=== PATIENT | male | born 1965 | race Caucasian/White ===

== ENCOUNTER → 2020-01-07 | Outpatient (CLI) | payer OTHER, SELFPAY | END | disposition home or self-care (01) | LOC: LABSPEC 01-11 07:31 | PROVIDERS: PCP Internal Medicine; Referring Provider Nurse Practitioner; Visit Provider Nurse Practitioner | DX: Z20.828 Contact with and (suspected) exposure to other viral communicable diseases (principal) | CPT/HCPCS: 87635; G2023; U0003 ==

== ENCOUNTER 2022-08-14 12:58 | Observation (INO) | payer OTHER, SELFPAY ==
[2022-08-14 12:59] VITALS: BP 155/101; PULSE 102; RESP 18; TEMP 35.9; O2SAT 98; BMI 34.5
[2022-08-14 13:31] LABS: Bedside Glucose 144 mg/dL (74-106)
--- NOTE | 2022-08-14 14:35 | EKG12_ITS ---
Test Reason : CONFUSION Blood Pressure : / mmHG Vent. Rate : 083 BPM Atrial Rate : 083 BPM P-R Int : 162 ms QRS Dur : 092 ms QT Int : 370 ms P-R-T Axes : 033 047 134 degrees QTc Int : 434 ms Normal sinus rhythm Nonspecific T wave abnormality Abnormal ECG Confirmed by HENRY MURRAY, MELISSA ([id number]), health editor MARICEL GAMBOA ([id number]) on 08/16/2022 9:40:00 AM Referred By: Confirmed By:MELISSA FIGUEROA MD
--- NOTE | 2022-08-14 14:35 | CT_ITS ---
STUDY: CT BRAIN WITHOUT CONTRAST REASON FOR EXAM: Male, 57 years old. Confusion RADIATION DOSAGE (If Supplied By Facility): CTDIvol = ( 44.99 ) mGy, DLP = ( 863.60 ) mGycm TECHNIQUE: Transaxial CT imaging of the brain was performed without administration of intravenous contrast material. Individualized dose optimization techniques were used for this CT. COMPARISON: No relevant priors. FINDINGS: Normal soft tissue structures. Normal calvarium. Normal size ventricles and extra-axial spaces for the patient''s age. Normal white matter tracts of the cerebral hemispheres. Normal basal ganglia and thalami. Normal brainstem. Normal cerebellum. There is no intracranial hemorrhage. There are no findings of an acute ischemic infarction. Normal visualized paranasal sinuses. CT/Brain/Head without Contrast IMPRESSION: Normal unenhanced CT scan of the brain. Electronically Signed: González Lang MD at 15:29 EST ,
[2022-08-14 14:56] LABS: Absolute Lymphocyte Count 1.95 X10^3/uL (0.83-4.51); Absolute Neutrophil Count 4.2 X10^3/uL (2.0-7.7); Basophil# 0.07 X10^3/uL; Eosinophil# 0.09 X10^3/uL; Eosinophils% 1.3 % (0-5); Hematocrit 45.1 % (40-54); Hemoglobin 15.5 g/dL (13.0-16.5); Lymphocyte # 1.95 X10^3/ul (0.83-4.51); Mean Corp Hgb Conc 34.4 g/dL (32-36); Mean Corpuscular Hgb 27.4 pg (27.0-32.0); Mean Corpuscular Volume 79.8 fL (80-94); Mean Platelet Vol. 10.3 fl (6.2-12.0); Monocyte# 0.43 X10^3/uL; Monocyte% 6.4 % (0-10); NRBC Flagged by Analyzer 0 % (0-5); Neutrophil # 4.16 X10^3/uL (2.7-7.7); Neutrophil % 61.9 % (47-70); Platelet Count 247 K/mm3 (150-450); RBC Distribution Width CV 13.2 % (11.6-14.6); RBC Distribution Width SD 37.2 fl (35.1-43.9); Red Blood Count 5.65 M/mm3 (4.6-6.2); White Blood Count 6.7 K/mm3 (4.4-11.0)
[2022-08-14 15:14] LABS: ALB/GLOB Ratio 1.2 RATIO (0.9-2.4); AST(SGOT) 45 U/L (15-37); Alanine Aminotransfer ALT/SGPT 60 U/L (16-61); Albumin, Serum 3.7 g/dL (3.2-5.0); Alkaline Phosphatase 60 U/L (45-117); Anion Gap 8 (5-15); BUN 14 mg/dL (7-18); Calcium,Total 8.8 mg/dL (8.5-10.1); Chloride 105 mmol/L (98-107); Creatinine, Serum 0.88 mg/dL (0.70-1.30); EST Glomerular Filtration Rate 96 mL/min (>60); Est Glom Filt Rate - Afr Amer 116 mL/min (>60); Estimated Creatinine Clearance 102.88 ml/min; Globulin 3.1 g/dL (2.2-4.2); Glucose 115 mg/dL (74-106); Potassium 3.5 mmol/L (3.5-5.1); Protein, Total 6.8 g/dL (6.4-8.2); Sodium Level 139 mmol/L (136-145); Troponin-I HS 9 pg/mL (3.0-78.0)
[2022-08-14 15:22] VITALS: BP 155/90; PULSE 93; RESP 13; O2SAT 100
[2022-08-14 15:25] LABS: Bacteria 0 SEEN /hpf (None Seen); Mucous, Urine 0 SEEN /hpf (<or=2+); Red Blood Cells-Urine 0 SEEN /hpf (0-5); Squamous Epithelial Cells - UA 0 SEEN /hpf (0-5); White Blood Cells 0 SEEN /hpf (0-5)
[2022-08-14 15:43] LABS: Color, Urine Yellow (Yellow); Glucose, Dipstick 50 mg/dl (Normal); Ketone-Dipstick Negative (Negative); Leukocyte Esterase-Dipstick Negative /ul (Negative); Nitrite-Dipstick Negative (Negative); Occult Blood-Urine Negative /ul (Negative); Protein-Dipstick 15 mg/dl (Negative); Urine Bilirubin Dipstick Negative (Negative); Urine Clarity Clear (Clear); Urine Urobilinogen Normal (Normal)
--- NOTE | 2022-08-14 16:04 | EDS_ITS ---
HPI History of Present Illness Chief Complaint: Confusion Informant: patient Onset/Context/Timing Onset: Today Context: Sudden Onset Timing: Lasts (2 hours) Quality: Confused, disoriented Location: Generalized Worsened by: Nothing Relieved by: Nothing Narrative Narrative: Presents with confusion episode that began today. Patient states that he took his normal injection of Mounjaro today at approximately 7:15. Patient states he is up to 10 mg of the Mounjaro once a week. Patient states that last week he also took an injection of 10 mg and had no side effects from that. Patient states that around 9:15 he noted he was becoming confused. Patient states that for approximately 2 hours he was confused and was having difficulty doing his normal activities. Patient states later in the day he realized that he was on his computer searching for some of the symptoms he was having. Patient does not remember much of that. Currently, patient states he feels back to normal. Patient did not check his blood sugar while he was confused. Patient denies any recent fevers or chills. Patient denies any chest pain or shortness of breath. Patient states nothing makes it better nothing makes it worse. PFSH PFSH Medical History Diabetes Hypercholesterolemia Hypertension Obstructive sleep apnea Medical History no medical history Allergy/AdvReac Type Severity Reaction Status Date / Time No Known Allergies Allergy Verified 08/14/22 13:01 Family History (Updated 08/14/22 @ 16:[address] Fernando Macias DO) Father Dementia Surgical History Hx of cholecystectomy Social History Smoking Status: Unknown if ever smoked ROS ROS ED Constitutional Constitutional ED: Denies chills or fever(s) Eyes Eyes: Denies blurry vision or change in vision ENT ENT ED: Denies rhinorrhea or sore throat Cardiovascular Cardiovascular: Denies chest pain or palpitations Respiratory/Chest Respiratory/Chest: Denies cough or dyspnea Gastrointestinal Gastrointestinal: Denies nausea or vomiting Genitourinary Genitourinary ED: Denies dysuria or hematuria Musculoskeletal Musculoskeletal: Denies back pain or neck pain Integumentary Denies abscess or rash Neurologic Neurologic: Denies headache(s) or weakness Allergic/Immunologic Allergic/Immunologic ED: Denies mouth swelling or urticaria EXAM Physical Exam Const Vital Signs: 08/14/22 12:59 08/14/22 15:22 Temperature 96.7 F L Temperature Source Temporal Pulse Rate 102 H 93 Respiratory Rate 18 13 Blood Pressure 155/101 H 155/90 H Blood Pressure Mean 119 111 Pulse Ox 98 100 Oxygen Delivery Method Room Air Room Air Positive well nourished and well developed General Appearance ED: well developed and NAD HEENT Reports moist mucous membranes Neck supple and no JVD Resp normal respiratory effort and clear to auscultation bilaterally Cardio regular rate, regular rhythm and no murmurs GI normal to inspection, nondistended, normoactive bowel sounds and non-tender Palpation: soft Extremity normal to inspection General Extremety ED: Negative for edema or tenderness General Extremity: Negative for edema Neuro oriented x3, CN's II-XII intact bilaterally and no sensory deficits noted Sensorium / Orientation: alert Motor Exam: strength 5/5 throughout Psych mental status grossly normal Skin no rashes or lesions noted MDM MDM MDM Narrative Medical decision making narrative: Differential diagnosis includes TIA, hypoglycemic episode, electrolyte abnormality, encephalopathy, COVID infection, influenza infection, stroke, intracranial bleeding, and cardiac ischemia. EKG will be obtained to assess for cardiac dysrhythmia and cardiac ischemia. CT scan of the brain will be obtained to assess for intracranial bleeding and stroke. CBC will be obtained to assess for anemia and leukocytosis. Comprehensive metabolic profile will be obtained to assess for hepatic function, renal function, and electrolyte abnormality. High-sensitivity troponin will be obtained to assess for cardiac ischemia. COVID-19 antigen will be obtained to assess for COVID infection. Influenza A and influenza B antigens will be obtained to assess for influenza infection. Lab Data Attestation: I reviewed the patient's lab results. Lab results narrative: CBC was reviewed and was within normal limits. Comprehensive metabolic profile was reviewed and was essentially within normal limits. High-sensitivity troponin was reviewed and was normal at 9. COVID-19 rapid antigen was reviewed and was negative. Influenza A and influenza B rapid antigens were reviewed and were negative. Urinalysis was reviewed. There is no evidence of urinary tract infection or hematuria. Labs: Laboratory Results - last 24 hr 08/14/22 08/14/22 08/14/22 13:04 14:45 14:45 WBC 6.7 RBC 5.65 Hgb 15.5 Hct 45.1 MCV 79.8 L MCH 27.4 MCHC 34.4 RDW Std Deviation 37.2 RDW Coeff of Kayla 13.2 Plt Count 247 MPV 10.3 Immature Gran % (Auto) 0.400 Neut % (Auto) 61.9 Lymph % (Auto) 29.0 [place] % (Auto) 6.4 Eos % (Auto) 1.3 Baso % (Auto) 1.0 Absolute Neuts (auto) 4.2 Absolute Lymphs (auto) 1.95 Nucleated RBC % 0 Sodium 139 Potassium 3.5 Chloride 105 Carbon Dioxide 26.0 Anion Gap 8 BUN 14 Creatinine 0.88 Estim Creat Clear Calc 102.88 Est GFR (MDRD) Af Amer 116 Est GFR (MDRD) Non-Af 96 BUN/Creatinine Ratio 16.0 Glucose 115 H Calcium 8.8 Total Bilirubin 0.60 AST 45 H ALT 60 Alkaline Phosphatase 60 Troponin I High Sens 9 Total Protein 6.8 Albumin 3.7 Globulin 3.1 Albumin/Globulin Ratio 1.2 Urine Color Urine Clarity Urine pH Ur Specific [place] Urine Protein Urine Glucose (UA) Urine Ketones Urine Occult Blood Urine Nitrite Urine Bilirubin Urine Urobilinogen Ur Leukocyte Esterase Urine RBC Urine WBC Ur Squamous Epith Cells Urine Bacteria Urine Mucus POC Glucose 144 H 08/14/22 15:07 WBC RBC Hgb Hct MCV MCH MCHC RDW Std Deviation RDW Coeff of Kayla Plt Count MPV Immature Gran % (Auto) Neut % (Auto) Lymph % (Auto) [place] % (Auto) Eos % (Auto) Baso % (Auto) Absolute Neuts (auto) Absolute Lymphs (auto) Nucleated RBC % Sodium Potassium Chloride Carbon Dioxide Anion Gap BUN Creatinine Estim Creat Clear Calc Est GFR (MDRD) Af Amer Est GFR (MDRD) Non-Af BUN/Creatinine Ratio Glucose Calcium Total Bilirubin AST ALT Alkaline Phosphatase Troponin I High Sens Total Protein Albumin Globulin Albumin/Globulin Ratio Urine Color Yellow Urine Clarity Clear Urine pH 7.0 Ur Specific [place] 1.010 Urine Protein 15 H Urine Glucose (UA) 50 H Urine Ketones Negative Urine Occult Blood Negative Urine Nitrite Negative Urine Bilirubin Negative Urine Urobilinogen Normal Ur Leukocyte Esterase Negative Urine RBC 0 SEEN Urine WBC 0 SEEN Ur Squamous Epith Cells 0 SEEN Urine Bacteria 0 SEEN Urine Mucus 0 SEEN POC Glucose Radiography Diagnostic Testing: Clinical Impression(s) from Imaging Studies Brain CT 08/14/22 14:35 IMPRESSION: Normal unenhanced CT scan of the brain. Electronically Signed: González Lang MD at 15:29 EST , CT scan of the brain was obtained. There is no acute intracranial abnormality. This was interpreted by the radiologist and was also independently reviewed by myself. EKG Initial EKG: Attestation: I personally reviewed and interpreted this EKG as follows: Interpretation: Sinus Rhythm (83) and Non-Specific ST Changes Comments: EKG was obtained. On my independent interpretation, it showed a normal sinus rhythm with a rate of 83. PA interval, QRS interval, and QTc intervals were all normal. [place] was normal. There are nonspecific ST-T wave changes. Prior EKG tracings: not available for review Prior: No Prior Treatment and Re-Evaluation Narrative: Patient is feeling better on reevaluation. Patient has had no further episodes of confusion here in the emergency department. I did look up Mounjaro and the peak effects are between 8 and 72 hours. So it is unlikely that the medication caused the confusion, however, hypoglycemia is still in the differential. His ABCD 2 score was 4. Patient therefore, I recommended admission for observation for TIA work-up. Patient is agreeable with this. Case was discussed with the hospitalist. He will admit the patient for observation. Patient understood and was agreeable with the plan. All questions were answered. Discharge Plan Dx/Rx/DC Orders Clinical Impression: Episode of confusion, Diabetes, TIA (transient ischemic attack) Disposition Disposition: Acute Care Hospital [facility]
[2022-08-14 17:18] VITALS: BP 134/87; PULSE 89; RESP 15
--- NOTE | 2022-08-14 17:38 | HP.PCM.HOS_ITS ---
HPI - General General Date of Admission: 08/14/22 Date of Service: 08/14/22 Chief Complaint: Confusion HPI Narrative CHARLI MURGUIA, is a 57 M who presents with confusion. Around 930, patient started feeling confused and just not himself. Patient did not lose consciousness but was able to contact his and let her know about this. He did not relay that there was any confusion about slurred speech nor did he have any concerns about word finding. But he did see on his Saoirse history that he was looking up his symptoms and came across TIA and fugue state. He did not recall searching that. Symptoms lasted couple hours and then he was brought to the hospital. He stated that he felt 90% better by the time he arrived here and states has been here he states that he is back to normal. He has had periods where he has had low blood sugar in the past but usually feels hungry with that he did not have that symptom. Patient does take Mounjaro for diabetes and takes it weekly. Took a dose this morning. He said he was able to drop his kids off and then had some breakfast. Did not feel anything out of the ordinary today until the symptoms occurred. He did not check his blood sugar when this event happened. He does have a glucometer but has not used it in some time as his blood sugars have been controlled. [facility], LAT[facility] Medical History Diabetes Hypercholesterolemia Hypertension Obstructive sleep apnea Medical History no medical history Home Medications cholecalciferol (vitamin D3) 25 mcg (1,000 unit) chewable tablet (Vitamin D3) 25 mcg PO DAILY supplement 08/14/22 [History Last Taken 08/14/22] cyanocobalamin (vitamin B-12) 1,000 mcg tablet (Vitamin B-12) 1,000 mcg PO DAILY supplement 08/14/22 [History Last Taken 08/14/22] losartan 25 mg tablet 25 mg PO DAILY blood pressure 08/14/22 [History Last Taken 08/14/22] metformin 500 mg tablet,extended release 24 hr 500 mg PO BID diabetes 08/14/22 [History Last Taken 08/14/22] rosuvastatin 10 mg tablet 10 mg PO QHS cholesterol 08/14/22 [History Last Taken 08/13/22] tirzepatide 10 mg/0.5 mL subcutaneous pen injector (Mounjaro) 10 mg subcut TU diabetes 08/14/22 [History Last Taken 08/14/22] Allergy/AdvReac Type Severity Reaction Status Date / Time No Known Allergies Allergy Verified 08/14/22 13:01 Family History (Updated 08/14/22 @ 17:[address] Fernando Mendoza, ) Father Dementia TIA (transient ischemic attack) Surgical History Hx of cholecystectomy Social History (Updated 08/14/22 @ 17:[address] Fernando Mendoza DO) Smoking Status: Never smoker alcohol intake: current alcohol intake frequency: holidays/special occasions only substance use type: does not use ROS ROS Narrative All review of systems were negative except as mentioned above in the history of present illness and the other review of systems. Vital Signs Vital Signs Vital Signs: 08/14/22 12:59 08/14/22 15:22 08/14/22 17:18 Temperature 35.9 C L Temperature Source Temporal Pulse Rate 102 H 93 89 Respiratory Rate 18 13 15 Blood Pressure 155/101 H 155/90 H 134/87 H Blood Pressure Mean 119 111 102 Pulse Ox 98 100 Oxygen Delivery Method Room Air Room Air Weight Weight: 115.666 kg Body Mass Index (BMI) 34.5 Physical Exam Narrative - Physical Exam General: Alert, Oriented x3, Cooperative HEENT: Atraumatic, PERRLA, EOMI, Normocephalic Oral: Moist Mucosa, No Gingival or Mucosal Lesions/ Ulcerations Neck: Supple, No JVD, Negative Carotid Bruits Lungs: Clear to auscultation, Normal air movement Cardiovascular: Regular rate, Normal S1, Normal S2, No murmurs Abdomen: Bowel Sounds Present, Soft, Non Tender, Non-Distended, No Hepato- splenomegaly Extremities: No clubbing, No cyanosis, No edema, Capillary Refill Less than 3 Seconds Skin: No rashes, No breakdown Musculoskeletal: No Tenderness to Palpation of Joints or Extremities Neurological: Neuro grossly intact. Cranial nerves II through XII grossly intact. Muscle strength out of 5 in upper and lower extremities bilaterally. Finger-nose and [id number] were unremarkable. Sensations grossly intact. Psych/Mental Status: Normal Affect, Appropriate Results Lab / Micro Data Attestation: I reviewed the patient's lab results. Result Diagrams: 08/14/22 14:45 08/14/22 14:45 Labs: Laboratory Results - last 24 hr 08/14/22 13:04: POC Glucose 144 H 08/14/22 14:45: WBC 6.7, RBC 5.65, Hgb 15.5, Hct 45.1, MCV 79.8 L, MCH 27.4, MCHC 34.4, RDW Std Deviation 37.2, RDW Coeff of Kayla 13.2, Plt Count 247, MPV 10.3, Immature Gran % (Auto) 0.400, Neut % (Auto) 61.9, Lymph % (Auto) 29.0, [place] % (Auto) 6.4, Eos % (Auto) 1.3, Baso % (Auto) 1.0, Absolute Neuts (auto) 4.2, Absolute Lymphs (auto) 1.95, Nucleated RBC % 0 08/14/22 14:45: Sodium 139, Potassium 3.5, Chloride 105, Carbon Dioxide 26.0, Anion Gap 8, BUN 14, Creatinine 0.88, Estim Creat Clear Calc 102.88, Est GFR (MDRD) Af Amer 116, Est GFR (MDRD) Non-Af 96, BUN/Creatinine Ratio 16.0, Glucose 115 H, Calcium 8.8, Total Bilirubin 0.60, AST 45 H, ALT 60, Alkaline Phosphatase 60, Troponin I High Sens 9, Total Protein 6.8, Albumin 3.7, Globulin 3.1, Albumin/Globulin Ratio 1.2 08/14/22 15:07: Urine Color Yellow, Urine Clarity Clear, Urine pH 7.0, Ur Specific [place] 1.010, Urine Protein 15 H, Urine Glucose (UA) 50 H, Urine Ketones Negative, Urine Occult Blood Negative, Urine Nitrite Negative, Urine Bilirubin Negative, Urine Urobilinogen Normal, Ur Leukocyte Esterase Negative, Urine RBC 0 SEEN, Urine WBC 0 SEEN, Ur Squamous Epith Cells 0 SEEN, Urine Bacteria 0 SEEN, Urine Mucus 0 SEEN Micro: Microbiology 08/14/22 14:50 Nasal Secretion SARS-CoV-2 & FLU Antigen (Rapid) - Final EKG Initial EKG: Attestation: I personally reviewed and interpreted this EKG as follows: Prior EKG tracings: available for review EKG Rhythm Intrepretation: Sinus Rhythm Radiology Impression Brain CT 08/14/22 14:35 IMPRESSION: Normal unenhanced CT scan of the brain. Electronically Signed: González Lang MD at 15:29 EST , Assessment & Plan Assessment/Plan (1) Episode of confusion: PLAN: Etiology unclear: Could be related with hypoglycemia though the patient did each. Fortunately he did not check his blood sugar. Other possibilities could be TIA or transient global amnesia though he does seem to recall most of the events. Other possibilities could be panic attack as he did state that he felt panicked during that but his panic may be more associated with just the confusion that he was experiencing. Plan: Start aspirin until he can rule out a stroke. Check MRI of the brain, MRA of the head neck, 2D echocardiogram, fasting lipid panel His current NIH is 0. (2) Diabetes: QUALIFIERS: Diabetes mellitus type: type 2 Diabetes mellitus jail insulin use: without termite inspector use Diabetes mellitus complication status: without complication Qualified Code(s): E11.9 - Type 2 diabetes mellitus without complications PLAN: [id number] Check an A1c Sliding scale insulin Pt did take his Mounjaro today. PLAN: Plan Chronic conditions * Hyperlipidemia: We will check lipid panel VTE prophylaxis: Not indicated as he is currently observation status Charges/Coding Visit Charges Inpatient E&M: 36716 Init Hosp L3
[2022-08-14 17:46] VITALS: BP 145/89; PULSE 94; RESP 20; TEMP 36.8; O2SAT 95
--- NOTE | 2022-08-14 17:53 | MRI_ITS ---
HISTORY: 1 EPISODE OF confusion THIS MORNING. Pt at baseline status since then Date: 08/14/2022 7:26 PM Technique: MR a examination of the neck obtained with standard protocol including [id number] imaging and three-dimensional reconstructions. No contrast administered. Comparison: No previous for comparison FINDINGS MRA Neck: Aortic arch: Aortic arch is not clearly demonstrated Right carotid system: There is normal appearance RIGHT common carotid, RIGHT internal carotid arteries, and the bifurcation. Normal appearance of the external carotid circulation on the RIGHT. Left carotid system: There is normal appearance of the LEFT common carotid, LEFT internal carotid, and the bifurcation. There is normal appearance of the LEFT external carotid circulation Vertebral arteries: There is normal appearance of the vertebral arteries bilaterally without focal stenosis or occlusion. There is flow artifact in the LEFT carotid bulb. Airway and soft tissues of the neck: There is normal appearance of the musculofascial planes of suprahyoid and infrahyoid neck. Normal appearance of the visualized airway. Normal appearance the visualized thyroid without masses or nodules noted. Cervical spine: Normal appearance of the visualized the cervical canal. MRI/MRA Neck without Contrast IMPRESSION: 1. No evidence focal stenosis occlusion or filling defects noted within the cervical carotid and vertebral circulation to level skull base. 2. Incidental note of flow artifact within the LEFT carotid bulb. Electronically Signed: Cornelio Haynes MD at 20:28 EST ,
--- NOTE | 2022-08-14 17:53 | MRI_ITS ---
STUDY: MRI BRAIN WITHOUT CONTRAST REASON FOR EXAM: Male, 57 years old. 1 EPISODE OF confusion THIS MORNING. Pt at baseline status since then TECHNIQUE: MRI examination brain fusion protocol including multiplanar multiecho noncontrast imaging. Contrast: No contrast administered. COMPARISON: CT examination of 08/14/2022 HEMISPHERES, CEREBELLUM AND BRAINSTEM: 1. The cerebral parenchyma, ventricular system, subarachnoid spaces have normal configuration and density. There is a normal gyral pattern. There is normal tang/white differentiation. No midline shift.. 2. The hemispheric white matter has normal appearance. 3. No intraparenchymal mass, hemorrhage, or acute territorial infarct. 4. The cerebellum, brainstem, basilar and suprasellar cisterns have normal appearance. No Chiari malformation. PITUITARY: Infundibulum and pituitary have normal configuration. Midline structures appear normal. CSF SPACES: Appropriate for age. No hydrocephalus. Basal cisterns are patent. VESSELS: 1. There are normal flow voids noted in the great vessels at the skull base ORBITS AND PARANASAL SINUSES: 1. Both globes, extraocular muscles, optic nerves and retrobulbar fat appear unremarkable. 2. Paranasal sinuses are clear. BONY ELEMENTS: Bony elements of the cranial vault, facial skeleton and skull base have normal appearance. SCALP AND SOFT TISSUES: Normal appearance of the soft tissues of the scalp and the visualized face OTHER: None MRI/Brain without Contrast IMPRESSION: 1. Normal MRI examination of brain. 2. No intracranial mass, hemorrhage, or acute territorial infarct. 3. No radiographically significant sinus disease. Electronically Signed: Cornelio Haynes MD at 20:16 EST ,
--- NOTE | 2022-08-14 17:53 | MRI_ITS ---
STUDY: MRA OF THE HEAD WITHOUT CONTRAST REASON FOR EXAM: Male, 57 years old. 1 EPISODE OF confusion THIS MORNING. Pt at baseline status since then TECHNIQUE: 3-D ulrz-as-vqzbbe (TOF) imaging was performed with MIPs. The study was performed unenhanced. CONTRAST: No contrast administered. COMPARISON: MRI examination of brain and CT examination of brain on the same date, 08/14/2022 FINDINGS: CAROTID VESSELS: Normal bilateral petrous carotid arteries. Normal right cavernous carotid artery with a normal supraclinoid bifurcation. Normal left cavernous carotid artery with a normal supraclinoid bifurcation. ANTERIOR CEREBRAL ARTERIES: Normal right A1 segments of the anterior cerebral artery. Normal left A1 segments of the anterior cerebral artery. Normal intact anterior communicating artery (ACOM). A2 segments are not completely included on current examination however no focal abnormality noted. MIDDLE CEREBRAL ARTERIES: Normal right M1 and M2 segments of the middle cerebral arteries, with a normal M1 bifurcation. Normal left M1 and M2 segments of the middle cerebral arteries, with a normal M1 bifurcation. POSTERIOR TO INDICATING ARTERIES: Normal right posterior communicating artery (PCOM). Normal left posterior communicating artery (PCOM). VERTEBRAL BASILAR SYSTEM: Normal bilateral vertebral arteries. Normal basilar artery with a normal basilar bifurcation. The visualized bilateral superior cerebellar (SCA) arteries are normal. Incidental note of a prominent unilateral RIGHT PICA. POSTERIOR CEREBRAL ARTERIES Normal bilateral P1, P2 and visualized P3 segments of the posterior cerebral arteries. There is no demonstrated aneurysm of the [place]. There is no major vessel occlusion or hemodynamically significant stenosis. MRI/MRA Head ONLY without Contrast IMPRESSION: 1. Normal MRA of the head 2. Incidental note of asymmetric RIGHT PICA which can be an anatomic variant. Electronically Signed: Cornelio Haynes MD at 20:24 EST ,
[2022-08-14 18:01] VITALS: BP 144/68; PULSE 67; RESP 16; O2SAT 94; BMI 33.8
[2022-08-14 20:09] VITALS: BP 149/87; PULSE 85; RESP 18; TEMP 36.6; O2SAT 98
[2022-08-14 22:20] LABS: Bedside Glucose 175 mg/dL (74-106)
[2022-08-15 02:00] VITALS: BP 135/84; PULSE 78; RESP 16; TEMP 36.6; O2SAT 99
[2022-08-15 05:29] LABS: Cholesterol 122 mg/dL (200); High Density Lipoprotein 37 mg/dL; Triglycerides 128 mg/dL; Very Low Density Lipoprotein 26 mg/dL (5-40)
[2022-08-15 07:30] LABS: Bedside Glucose 116 mg/dL (74-106)
[2022-08-15 07:31] VITALS: BP 137/97; PULSE 73; RESP 18; TEMP 37; O2SAT 98
[2022-08-15] MEDS: Aspirin 81 MG TAB.CHEW PO (07:52)
[2022-08-15 08:48] LABS: Hemoglobin A1c 6.9 % (3.8-5.6)
--- NOTE | 2022-08-15 10:07 | CASEMGMT ---
SW did not complete a PHQ 9 as patient did not have a Stroke or TIA. Rebekah SOTOMAYOR
--- NOTE | 2022-08-15 11:18 | DCINST_ITS ---
Discharge Instructions Diet Discharge Diet: - (resume previous diet) Activity Discharge Activity: Return to Normal Activity May resume sexual activity in: No Restrictions Weight Bearing Status: Full weight bearing Follow Up Care Test Results: Test results from this visit will be discussed in further detail at your follow- up appointment, if applicable. Discharge Plan Admission Admit Date/Time: 08/14/22 17:30 Primary Reason for Your Visit: transient global amnesia Attending Provider: Sulaiman Guajardo Primary Care Provider: Ebony Clark Consulting Providers: Fernando Mendoza Discharge Orders/Prescriptions Prescriptions: Continued cyanocobalamin (vitamin B-12) [Vitamin B-12] 1,000 mcg Tablet 1,000 mcg PO DAILY losartan 25 mg tablet 25 mg PO DAILY metformin 500 mg tablet extended release 24 hr 500 mg PO BID rosuvastatin 10 mg tablet 10 mg PO QHS cholecalciferol (vitamin D3) [Vitamin D3] 25 mcg (1,000 unit) Tablet,Chewable 25 mcg PO DAILY Mounjaro 10 mg/0.5 mL Pen Injector 10 mg SUBCUT TU Referrals / Follow Up: Ebony Clark MD [Primary Care Provider] - See Referral Note (as scheduled) Disposition Disposition (needs filled in before D/C Order can be placed): Home, Self Care
[2022-08-15 11:43] VITALS: BP 137/86; PULSE 97; RESP 18; TEMP 36.7; O2SAT 96
--- NOTE | 2022-08-15 11:54 | PHA.DC.MR ---
Pharmacy Service has performed discharge medication reconciliation for this patient. The patient's discharge medication list was reviewed for discrepancies and discrepancies were resolved. Home Medications cholecalciferol (vitamin D3) 25 mcg (1,000 unit) chewable tablet (Vitamin D3) 25 mcg PO DAILY supplement 08/14/22 cyanocobalamin (vitamin B-12) 1,000 mcg tablet (Vitamin B-12) 1,000 mcg PO DAILY supplement 08/14/22 losartan 25 mg tablet 25 mg PO DAILY blood pressure 08/14/22 metformin 500 mg tablet,extended release 24 hr 500 mg PO BID diabetes 08/14/22 rosuvastatin 10 mg tablet 10 mg PO QHS cholesterol 08/14/22 tirzepatide 10 mg/0.5 mL subcutaneous pen injector (Mounjaro) 10 mg subcut TU diabetes 08/14/22
--- NOTE | 2022-08-15 12:00 | PCM.DC.SUM ---
Providers Date of Admission: 08/14/22 Date of Discharge: 08/15/22 Primary Care Physician: Dr. Ebony Clark MD Reason For Visit: CONFUSION EPISODE, TIA, DIABETES Diagnosis Discharge Diagnosis (1) Episode of confusion: Status: Acute Code(s): R41.0 - Disorientation, unspecified (2) Diabetes: Status: Acute Code(s): E11.9 - Type 2 diabetes mellitus without complications Qualifiers: Diabetes mellitus complication status: without complication Diabetes mellitus detention insulin use: without detention use Diabetes mellitus type: type 2 Qualified Code(s): E11.9 - Type 2 diabetes mellitus without complications Plan 1. Transient global amnesia #2 type 2 diabetes #3 essential hypertension #4 hyperlipidemia Medications at Discharge Home Medications cholecalciferol (vitamin D3) 25 mcg (1,000 unit) chewable tablet (Vitamin D3) 25 mcg PO DAILY supplement 08/14/22 cyanocobalamin (vitamin B-12) 1,000 mcg tablet (Vitamin B-12) 1,000 mcg PO DAILY supplement 08/14/22 losartan 25 mg tablet 25 mg PO DAILY blood pressure 08/14/22 metformin 500 mg tablet,extended release 24 hr 500 mg PO BID diabetes 08/14/22 rosuvastatin 10 mg tablet 10 mg PO QHS cholesterol 08/14/22 tirzepatide 10 mg/0.5 mL subcutaneous pen injector (Mounjaro) 10 mg subcut TU diabetes 08/14/22 Hospital Course Operations None Procedures None Summary of Care Provided Minutes Spent on Discharge: 30 Hospital Course: This 57-year-old white male was seen in the emergency room with a chief complaint of an episode of confusion that lasted a couple of hours, work-up was undertaken in the emergency room including a CT of the brain which showed no abnormality. Patient was admitted to PCU, he underwent an MRI which showed no abnormalities, patient's clinical presentation was in keeping with transient global amnesia, I explained this to the patient and told him there was no treatment for this. On 08/15/2022, patient was seen and examined: On examination he appeared in good health and spirits. Vital signs as documented. Skin warm and dry and without overt rashes. Neck without JVD, neck was supple, trachea midline, thyroid was normal. Lungs clear bilaterally, normal air movement was noted. Heart exam notable for regular rhythm, normal sounds and absence of murmurs, rubs or gallops. Abdomen unremarkable and without evidence of organomegaly, masses, or abdominal aortic enlargement. Bowel sounds are present, abdomen is not distended. Extremities nonedematous, no cyanosis was noted, no clubbing was noted. Neuro: Cranial nerves II through XII are grossly intact, no focal motor deficits were noted, sensation to light touch and pinprick intact, motor exam 5/5 throughout. Psych: Patient is alert and oriented x3, he does not appear anxious or depressed, he does not appear agitated. Patient was discharged in stable condition on 08/16/2019 Weight / BMI Weight Weight: 113.4 kg Body Mass Index (BMI) 33.8 ABG / Lab / Microbiology Data Result Diagrams: 08/14/22 14:45 08/14/22 14:45 Laboratory: Laboratory Results - last 24 hr 08/14/22 13:04: POC Glucose 144 H 08/14/22 14:45: WBC 6.7, RBC 5.65, Hgb 15.5, Hct 45.1, MCV 79.8 L, MCH 27.4, MCHC 34.4, RDW Std Deviation 37.2, RDW Coeff of Kayla 13.2, Plt Count 247, MPV 10.3, Immature Gran % (Auto) 0.400, Neut % (Auto) 61.9, Lymph % (Auto) 29.0, Brooks % (Auto) 6.4, Eos % (Auto) 1.3, Baso % (Auto) 1.0, Absolute Neuts (auto) 4.2, Absolute Lymphs (auto) 1.95, Nucleated RBC % 0 08/14/22 14:45: Sodium 139, Potassium 3.5, Chloride 105, Carbon Dioxide 26.0, Anion Gap 8, BUN 14, Creatinine 0.88, Estim Creat Clear Calc 102.88, Est GFR (MDRD) Af Amer 116, Est GFR (MDRD) Non-Af 96, BUN/Creatinine Ratio 16.0, Glucose 115 H, Calcium 8.8, Total Bilirubin 0.60, AST 45 H, ALT 60, Alkaline Phosphatase 60, Troponin I High Sens 9, Total Protein 6.8, Albumin 3.7, Globulin 3.1, Albumin/Globulin Ratio 1.2 08/14/22 15:07: Urine Color Yellow, Urine Clarity Clear, Urine pH 7.0, Ur Specific Brooks 1.010, Urine Protein 15 H, Urine Glucose (UA) 50 H, Urine Ketones Negative, Urine Occult Blood Negative, Urine Nitrite Negative, Urine Bilirubin Negative, Urine Urobilinogen Normal, Ur Leukocyte Esterase Negative, Urine RBC 0 SEEN, Urine WBC 0 SEEN, Ur Squamous Epith Cells 0 SEEN, Urine Bacteria 0 SEEN, Urine Mucus 0 SEEN 08/14/22 22:02: POC Glucose 175 H 08/15/22 04:04: Triglycerides 128, Cholesterol 122, LDL Cholesterol 59, VLDL Cholesterol 26, HDL Cholesterol 37 L 08/15/22 04:04: Hemoglobin A1c 6.9 H 08/15/22 07:11: POC Glucose 116 H Microbiology: Microbiology 08/14/22 14:50 Nasal Secretion SARS-CoV-2 & FLU Antigen (Rapid) - Final Radiography Diagnostic Testing: Radiology Impression Brain CT 08/14/22 14:35 IMPRESSION: Normal unenhanced CT scan of the brain. Electronically Signed: González Lang MD at 15:29 EST , Brain MRI 08/14/22 17:53 IMPRESSION: 1. Normal MRI examination of brain. 2. No intracranial mass, hemorrhage, or acute territorial infarct. 3. No radiographically significant sinus disease. Electronically Signed: Cornelio Haynes MD at 20:16 EST , Head MRA 08/14/22 17:53 IMPRESSION: 1. Normal MRA of the head 2. Incidental note of asymmetric RIGHT PICA which can be an anatomic variant. Electronically Signed: Cornelio Haynes MD at 20:24 EST , Neck MRA 08/14/22 17:53 IMPRESSION: 1. No evidence focal stenosis occlusion or filling defects noted within the cervical carotid and vertebral circulation to level skull base. 2. Incidental note of flow artifact within the LEFT carotid bulb. Electronically Signed: Cornelio Haynes MD at 20:28 EST , D/C Instructions Discharge Diet: - (resume previous diet) May resume sexual activity in: No Restrictions Weight Bearing Status: Full weight bearing Meaningful Use Info Meaningful Use Diagnoses (Choose all that apply): None applicable Discharge Plan Admission Admit Date/Time: 08/14/22 17:30 Primary Reason for Your Visit: transient global amnesia Attending Provider: Sulaiman Guajardo Primary Care Provider: Ebony Clark Consulting Providers: Fernando Mendoza Discharge Orders/Prescriptions Prescriptions: Continued cyanocobalamin (vitamin B-12) [Vitamin B-12] 1,000 mcg Tablet 1,000 mcg PO DAILY losartan 25 mg tablet 25 mg PO DAILY metformin 500 mg tablet extended release 24 hr 500 mg PO BID rosuvastatin 10 mg tablet 10 mg PO QHS cholecalciferol (vitamin D3) [Vitamin D3] 25 mcg (1,000 unit) Tablet,Chewable 25 mcg PO DAILY Mounjaro 10 mg/0.5 mL Pen Injector 10 mg SUBCUT TU Referrals / Follow Up: Ebony Clark MD [Primary Care Provider] - See Referral Note (as scheduled) Disposition Disposition (needs filled in before D/C Order can be placed): Home, Self Care Charges/Coding Visit Charges Inpatient E&M: 23634 Disch Hosp
== END 2022-08-15 11:22 | disposition home or self-care (01) ==
LOC: ED 17:10 → PCU 17:54
PROVIDERS: Emergency Provider Emergency Medicine; PCP Internal Medicine; Visit Provider Internal Medicine
DX: G45.4 Transient global amnesia (principal); E11.9 Type 2 diabetes mellitus without complications; R41.0 Disorientation, unspecified; I10 Essential (primary) hypertension; Z79.84 Long term (current) use of oral hypoglycemic drugs; E78.00 Pure hypercholesterolemia, unspecified; Z79.899 Other long term (current) drug therapy; G47.33 Obstructive sleep apnea (adult) (pediatric); R94.31 Abnormal electrocardiogram [ECG] [EKG]
CPT/HCPCS: 99284; 36415; 70450; 70544; 70547; 70551; 80053; 80061; 81001; 82962; 83036; 84484; 85025; 87428; 93005; 99221; A4216; G0378